=== PATIENT | female | born 1955 | race Two or more races ===

== ENCOUNTER 2024-10-22 13:08 | Inpatient (IN) | payer OTHER ==
[~2024-10-22] VITALS: Ht 147.3 cm; Wt 52.6 kg
--- NOTE | 2024-10-22 13:31 | NUR ---
PTE ALERTA Y ORIENTADO X3 RECIBIDO POR AMBULANCIA ACOMPANADA DE DE LA TORRE ESPOSO, REFIERE TENER DEBILIDAD, SE HEATHER SV Y SE UBICA EN CAMA K7 CON BARRANDAS ELEVADAS.
[2024-10-22] MEDS ORDERED: FAMOtidine 10 MG/ML (4ML VIAL) IV ONE (13:45)
[2024-10-22] MEDS ORDERED: PIPERACILLIN/TAZOBACTAM SODIUM 3.375 GM VIAL IV ONE (13:45)
--- NOTE | 2024-10-22 14:16 | NUR ---
SE EDUCA PACIENTE SOBRE EL [place] MEDICO Y ESTA REFIERE ENTENDER. SE HEATHER MUESTRAS DE LABORATORIOS Y SE ENVIAN. SE ADMINITRA MEDICAMENTOS SEEGUN ORDEN MEDICA.
[2024-10-22 15:14] LABS: INR 1.15; PARTIAL THROMBOPLASTIN TIME 29.9 SECONDS (22.0-34.0); PROTHROMBIN TIME 12.4 SECONDS (9.0-11.5)
[2024-10-22 15:18] LABS: ALBUMIN 2.7 gm/dL (3.4-5.0); BILIRUBIN TOTAL 0.43 mg/dL (0.3-1.2); CALCIUM 9.3 mg/dL (8.5-10.1); CREATININE SERUM 0.44 mg/dL (0.55-1.02); GFR 142.63; GLOBULINA 4.3 G/DL (2.4-3.5); POTASSIUM 3.54 mEq/L (3.5-5.1)
[2024-10-22 15:24] LABS: HEMOGLOBIN 9.8 g/dL (12.0-15.00); MEAN CELL VOLUME 91.3 fL (80.00-100.00); MEAN CORPUSCULAR HEMOGLOBIN 29.9 pg (27.00-32.0); MEAN CORPUSCULAR HGB CONC 32.7 g/dl (32.0-36.0); PLATELET COUNT 233 K/uL (150-450); RED BLOOD COUNT 3.28 M/uL (4.00-6.00); RED CELL DISTRIBUTION WIDTH 15.4 % (11.5-14.5)
[2024-10-22 15:25] LABS: ERYTHROCYTE SEDIMENTATION RATE > 130 mm/hr
[2024-10-22 15:27] LABS: C-REACTIVE PROTEIN 25.1 MG/DL (0.00-0.29)
[2024-10-22] MEDS ORDERED: VANCOMYCIN HCL 1,000 MG VIAL IV SCH (17:23)
[2024-10-22] MEDS ORDERED: ACETAMINOPHEN 500 MG GEL..CAP PO PRN (17:30)
[2024-10-22] MEDS ORDERED: 0.9 % SODIUM CHLORIDE 1,000 ML IV SCH (17:30)
[2024-10-22] MEDS ORDERED: ONDANSETRON HCL 4 MG in 0.9 % SODIUM CHLORIDE 50 ML IV PRN (17:30)
[2024-10-22] MEDS ORDERED: 0.9 % SODIUM CHLORIDE 500 ML IV ONE (17:45)
[2024-10-23] MEDS ORDERED: CEFEPIME HCL 2,000 MG in DEXTROSE 5 % IN WATER 100 ML IV SCH (01:00)
[2024-10-23] MEDS ORDERED: ENOXAPARIN SODIUM 40 MG/0.4 ML SYRINGE SUBCUTANEO SCH (09:00)
[2024-10-23] MEDS ORDERED: FAMOTIDINE/PF 20 MG in 0.9 % SODIUM CHLORIDE 8 ML IV PUSH SCH (09:00)
[2024-10-23 16:15] VITALS: BP 147/73; O2SAT 99
[2024-10-23 17:14] LABS: URINE APPEARANCE Turbid; URINE BILIRRUBIN Negative (NEGATIVE); URINE BLOOD Moderate; URINE CAST 6.13 uL (0.0-1.40); URINE COLOR Yellow; URINE EPITHELIAL CELLS 91.3 uL (0.0-38.8); URINE GLUCOSE Negative (NEGATIVE); URINE LEUKOCYTE Large; URINE NITRATE Negative; URINE RBC 73.5 uL (0.0-20.8); URINE UROBILINOGEN 0.2 E.U./dl
[2024-10-23 18:41] VITALS: BP 130/70; O2SAT 98
[2024-10-23 19:05] LABS: URINE BACTERIA > 9821.5 uL (0.0-1933); URINE KETONE 40 (NEGATIVE); URINE PROTEIN 100 (NEGATIVE); URINE WBC > 5548.3 uL (0.0-23.2)
[2024-10-23 19:08] LABS: URINE YEAST NEGATIVE /hpf
[2024-10-24] MEDS ORDERED: PIPERACILLIN/TAZOBACTAM SODIUM 3.375 GM VIAL IV SCH
[2024-10-24 00:29] VITALS: BP 142/76; O2SAT 98
[2024-10-24] MEDS ORDERED: VANCOMYCIN HCL 1,000 MG VIAL ONE (06:30)
[2024-10-24 08:00] VITALS: BP 99/60; O2SAT 99
[2024-10-24] MEDS ORDERED: SODIUM HYPOCHLORITE 1OZ TOP SCH (09:00)
[2024-10-24 16:34] VITALS: BP 133/69; O2SAT 97
[2024-10-24] MEDS ORDERED: MAGNESIUM HYDROXIDE 400 MG/5 ML ML PO SCH (20:29)
[2024-10-25 00:31] VITALS: BP 76/45; O2SAT 97
[2024-10-25] MEDS ORDERED: VANCOMYCIN HCL 1,000 MG VIAL ONE (07:49)
[2024-10-25 08:31] VITALS: BP 90/55; O2SAT 97
[2024-10-25] MEDS ORDERED: MAGNESIUM HYDROXIDE 30 ML BLIST.PACK PO SCH (09:00)
[2024-10-25 17:02] VITALS: BP 107/74; O2SAT 95
[2024-10-26] VITALS: BP 108/77; O2SAT 99
[2024-10-26] MEDS ORDERED: VANCOMYCIN HCL 1,000 MG VIAL ONE (07:15)
[2024-10-26 08:00] VITALS: BP 93/71; O2SAT 97
[2024-10-26 17:38] VITALS: BP 90/66; O2SAT 98
[2024-10-26 21:50] LABS: HEMATOCRIT 25.9 % (36.0-45.00); MEAN CELL VOLUME 90.6 fL (80.00-100.00); MEAN CORPUSCULAR HGB CONC 32.7 g/dl (32.0-36.0); PLATELET COUNT 297 K/uL (150-450); RED BLOOD COUNT 2.86 M/uL (4.00-6.00); RED CELL DISTRIBUTION WIDTH 15.8 % (11.5-14.5)
[2024-10-26 21:51] LABS: HEMOGLOBIN 8.5 g/dL (12.0-15.00); MEAN CORPUSCULAR HEMOGLOBIN 29.7 pg (27.00-32.0)
[2024-10-26 22:13] LABS: ALBUMIN 1.7 gm/dL (3.4-5.0); BILIRUBIN TOTAL 0.25 mg/dL (0.3-1.2); CALCIUM 8.2 mg/dL (8.5-10.1); CREATININE SERUM 0.36 mg/dL (0.55-1.02); GFR 179.79; GLOBULINA 3.7 G/DL (2.4-3.5); MAGNESIUM 1.7 mg/dL (1.8-2.4); PHOSPHOROUS 2.1 mg/dL (2.5-4.9); POTASSIUM 3.98 mEq/L (3.5-5.1); TOTAL PROTEIN 5.4 gm/dL (6.4-8.2)
[2024-10-27 01:25] VITALS: BP 92/69; O2SAT 98
[2024-10-27 08:00] VITALS: BP 118/79; O2SAT 98
[2024-10-27 16:00] VITALS: BP 120/82; O2SAT 96
[2024-10-28 01:40] VITALS: BP 145/82; O2SAT 97
[2024-10-28 08:00] VITALS: BP 150/74; O2SAT 95
[2024-10-28 17:58] VITALS: BP 133/79; O2SAT 94
[2024-10-29] VITALS: BP 167/98; O2SAT 92
[2024-10-29 07:10] LABS: HEMATOCRIT 26.5 % (36.0-45.00); MEAN CELL VOLUME 90.6 fL (80.00-100.00); MEAN CORPUSCULAR HGB CONC 32.8 g/dl (32.0-36.0); PLATELET COUNT 337 K/uL (150-450); RED BLOOD COUNT 2.93 M/uL (4.00-6.00); RED CELL DISTRIBUTION WIDTH 16.1 % (11.5-14.5)
[2024-10-29 07:17] LABS: HEMOGLOBIN 8.7 g/dL (12.0-15.00); MEAN CORPUSCULAR HEMOGLOBIN 29.6 pg (27.00-32.0)
[2024-10-29 08:40] VITALS: BP 146/85; O2SAT 95
[2024-10-29] MEDS ORDERED: FAMOTIDINE/PF 20 MG in 0.9 % SODIUM CHLORIDE 8 ML IV PUSH SCH (09:00)
[2024-10-29 13:11] VITALS: BP 146/84; O2SAT 95
[2024-10-29 16:00] VITALS: BP 151/79; O2SAT 95
[2024-10-30 01:24] VITALS: BP 132/83; O2SAT 97
[2024-10-30 09:17] VITALS: BP 152/85; O2SAT 96
[2024-10-30 16:00] VITALS: BP 153/87; O2SAT 96
[2024-10-31 00:48] VITALS: BP 113/76; O2SAT 98
[2024-10-31 09:29] VITALS: BP 112/73; O2SAT 97
[2024-10-31 16:00] VITALS: BP 135/82; O2SAT 98
[2024-11-01 00:44] VITALS: BP 103/67; O2SAT 97
[2024-11-01 08:24] VITALS: BP 129/74; O2SAT 98
[2024-11-01 17:10] VITALS: BP 144/78
[2024-11-02 00:38] VITALS: BP 102/63; O2SAT 98
[2024-11-02 08:00] VITALS: BP 115/66; O2SAT 98
[2024-11-02] MEDS ORDERED: PIPERACILLIN/TAZOBACTAM SODIUM 3.375 GM VIAL IV SCH (12:00)
[2024-11-02 16:00] VITALS: BP 125/76; O2SAT 99
[2024-11-03 01:20] VITALS: BP 141/77; O2SAT 100
[2024-11-03 08:00] VITALS: BP 150/82; O2SAT 100
[2024-11-03 16:53] VITALS: BP 114/61; O2SAT 98
[2024-11-04 01:11] VITALS: BP 90/51; O2SAT 96
[2024-11-04 09:20] VITALS: BP 149/76; O2SAT 100
[2024-11-04 16:27] VITALS: BP 144/77; O2SAT 96
[2024-11-04] MEDS ORDERED: POVIDONE-IODINE 118 ML BOTT TOP ONE (16:39)
== END 2024-11-04 19:09 | DRG 622 ==
LOC: ER 13:08 → SEC-K 19:43 → SURH 19:43
PROVIDERS: General Practice; ADMIT Internal Medicine; ATTEND Internal Medicine
PROC: 8E0ZXY6 Isolation (ICD-10-PCS; 2024-10-22)
PROC: 0JB70ZZ Excision of Back Subcutaneous Tissue and Fascia, Open Approach (ICD-10-PCS; principal; 2024-10-23)
PROC: BR39ZZZ Magnetic Resonance Imaging (MRI) of Lumbar Spine (ICD-10-PCS; 2024-10-26)
PROC: 0JB70ZZ Excision of Back Subcutaneous Tissue and Fascia, Open Approach (ICD-10-PCS; 2024-10-29)
PROC: 02HV33Z Insertion of Infusion Device into Superior Vena Cava, Percutaneous Approach (ICD-10-PCS; 2024-11-04)
DX: E11.622 Type 2 diabetes mellitus with other skin ulcer (principal); L89.153 Pressure ulcer of sacral region, stage 3; I96 Gangrene, not elsewhere classified; C79.82 Secondary malignant neoplasm of genital organs; M86.8X8 Other osteomyelitis, other site; L02.212 Cutaneous abscess of back [any part, except buttock and flank]; L03.312 Cellulitis of back [any part except buttock and flank]; D84.89 Other immunodeficiencies; K59.00 Constipation, unspecified; I10 Essential (primary) hypertension; Z92.21 Personal history of antineoplastic chemotherapy; B96.4 Proteus (mirabilis) (morganii) as the cause of diseases classified elsewhere; Z74.01 Bed confinement status
CPT/HCPCS: 72148

== ENCOUNTER 2024-12-09 02:05 | Inpatient (IN) | payer OTHER ==
[~2024-12-09] VITALS: Ht 152.4 cm; Wt 52.2 kg
--- NOTE | 2024-12-09 02:32 | NUR ---
PTE LLEGA A HOLLAND DE EMEREGENCIA EN AMBULANCIA POR TOS Y LEVE DIFICULTADA AL RESPIRAL . SE LE SIMRAN S/V Y SE DOCUEMTA .PTE LLEGA CON IVF'S EN MANO IZQUIOERDA , PTE CON P[ICC LINE Y FOLIE CATHETE, SE OBSERVA CON DRENAJE PARA LA ULCERA SACRAL . PTE REFIERE ESTAR EN CAMADA., SE ACOMODA EN CONCHITA CON BARBDAS ELEVADA.3
[2024-12-09] MEDS ORDERED: GUAIFENESIN 200 MG/10 ML BLIST.PACK PO STA (02:43)
[2024-12-09] MEDS ORDERED: ALBUTEROL SULFATE 3 ML/2.5 MG AMPUL.NEB IH SCH ×3 (02:45→12:00)
[2024-12-09 03:10] LABS: ABG PH 7.460 (7.35-7.45); ABG PO2 108.0 mmHg (80-100); BICARBONATE 29.0 mmol/l (23-25)
[2024-12-09] MEDS ORDERED: GUAIFENESIN 200 MG/10 ML BLIST.PACK PO ONE (03:31)
--- NOTE | 2024-12-09 03:57 | NUR ---
SE RECIBE PTE FEMENINA DE 69 YRS ALERTA CONCIENTE Y TRANQUILA EN CONCHITA CON BARADAS ELEVADA. ES EVALUADA POR EL DR, BIJAN QUIEN ORDENA TRATAMIENTO LA CUAL SE EJECUTA.
[2024-12-09 04:05] LABS: BASO % 0.1 % (0.1-1.2); EOS # 0.02 (0.04-0.54); EOS % 0.2 % (0.7-7.0); LYMPH # 0.48 (1.18-3.74); LYMPH % 5.5 % (19.3-53.1); MEAN PLATELET VOLUME 8.70 fl (9.4-12.4); MONO # 0.59 (0.24-0.82); MONO % 6.7 % (4.7-12.5); NEUT # 7.59 (1.56-6.13); NEUT % 86.6 % (34.0-71.1); RED CELL DISTRIBUTION WIDTH 17.3 % (11.6-14.4)
[2024-12-09 04:18] LABS: ALT/SGPT 43.0 U/L (12-78); AST/SGOT 22.0 U/L (15-37); BILIRUBIN TOTAL 0.23 mg/dL (0.3-1.2); BUN CREA RATIO 33.0 (7.0-25.0); CREATININE SERUM 0.57 mg/dL (0.55-1.02); GFR 105.79; GLOBULINA 3.4 G/DL (2.4-3.5); GLUCOSE FASTING 149.0 mg/dL (65-100); OSMOLALITY SERUM 286.0 MOSM/KG (275-295)
[2024-12-09 04:44] LABS: URINE APPEARANCE Turbid; URINE BILIRRUBIN Small (NEGATIVE); URINE BLOOD NHT; URINE COLOR Dark Yellow; URINE GLUCOSE Negative (NEGATIVE); URINE KETONE Trace (NEGATIVE); URINE LEUKOCYTE Moderate; URINE NITRATE Negative; URINE UROBILINOGEN 1.0 E.U./dl
[2024-12-09 04:47] LABS: URINE BACTERIA 1958.3 uL (0.0-1933); URINE RBC 756.0 uL (0.0-20.8)
[2024-12-09 05:09] LABS: COVID-19 AG NEGATIVE (NEGATIVE)
[2024-12-09 05:11] LABS: URINE CAST > 21.83 uL (0.0-1.40); URINE EPITHELIAL CELLS > 201.7 uL (0.0-38.8); URINE MUCUS SCANT; URINE PROTEIN 100 (NEGATIVE); URINE WBC > 5548.3 uL (0.0-23.2)
[2024-12-09 05:12] LABS: TYPE CELLS SQUAMOUS
[2024-12-09] MEDS ORDERED: OSELTAMIVIR PHOSPHATE 75 MG CAPSULE PO STA (05:12)
[2024-12-09 05:13] LABS: URINE YEAST MANY /hpf
[2024-12-09] MEDS ORDERED: CEFTRIAXONE SODIUM 1,000 MG VIAL IV STA (06:16)
[2024-12-09 06:38] LABS: o2 32 %
[2024-12-09] MEDS ORDERED: CEFTRIAXONE SODIUM 1,000 MG VIAL ONE (07:18)
[2024-12-09] MEDS ORDERED: OSELTAMIVIR PHOSPHATE 75 MG CAPSULE PO ONE (07:18)
--- NOTE | 2024-12-09 07:56 | NUR ---
SE ORIENTA A PACIENTE SOBRE [place] MEDICO Y EL MISMO REFIERE ENTENDER Y ACEPTAR RIVKA. SE PROCEDE A ADMINISTRAR MEDICAMENTO HANNY ORDEN MEDICA BAJO MEDIDAS ASEPTICAS.
[2024-12-09] MEDS ORDERED: ALBUTEROL SULFATE 3 ML/2.5 MG AMPUL.NEB IH ONE ×2 (08:12→11:49)
[2024-12-09] MEDS ORDERED: SODIUM CHLORIDE 0.45 % 1,000 ML IV SCH (11:30)
[2024-12-09] MEDS ORDERED: OSELTAMIVIR PHOSPHATE 75 MG CAPSULE PO SCH (11:49)
[2024-12-09] MEDS ORDERED: VANCOMYCIN HCL 1,000 MG VIAL IV STA (11:51)
[2024-12-09] MEDS ORDERED: CEFEPIME HCL 1,000 MG in 0.9 % SODIUM CHLORIDE 50 ML IV SCH (12:36)
[2024-12-09] MEDS ORDERED: VANCOMYCIN HCL 1,000 MG VIAL ONE (13:45)
[2024-12-09 15:26] VITALS: BP 102/62; O2SAT 98
[2024-12-09 17:54] VITALS: BP 93/58; O2SAT 83
[2024-12-09 18:31] LABS: ABG PH 7.466 (7.35-7.45); BICARBONATE 28.4 mmol/l (23-25)
[2024-12-09] MEDS ORDERED: AMINO ACIDS 1 EACH TABLET PO SCH (19:32)
[2024-12-09 19:46] LABS: ABG PO2 51.9 mmHg (80-100)
[2024-12-09 19:47] LABS: o2 32 %
[2024-12-09] MEDS ORDERED: FAMOTIDINE/PF 20 MG/2 ML VIAL IV SCH (21:00)
[2024-12-09] MEDS ORDERED: ENOXAPARIN SODIUM 40 MG/0.4 ML SYRINGE SUBCUTANEO STA (21:34)
[2024-12-09] MEDS ORDERED: ENOXAPARIN SODIUM 40 MG/0.4 ML SYRINGE SUBCUTANEO SCH (21:34)
[2024-12-09] MEDS ORDERED: NOREPINEPHRINE BITARTRATE 1 MG/ML AMPUL IV ONE (23:01)
[2024-12-09] MEDS ORDERED: NOREPINEPHRINE BITARTRATE 8 MG in DEXTROSE 5 % IN WATER 250 ML IV SCH (23:15)
[2024-12-09] MEDS ORDERED: 0.9 % SODIUM CHLORIDE 500 ML IV ONE (23:15)
[2024-12-09 23:49] VITALS: O2SAT 100
[2024-12-10] VITALS (7 sets, daily range): BP systolic 143–159; BP diastolic 74–79; O2SAT 96–100
[2024-12-10 11:36] LABS: ABG PH 7.395 (7.35-7.45); ABG PO2 101.1 mmHg (80-100); BICARBONATE 27.2 mmol/l (23-25)
[2024-12-10 11:37] LABS: o2 50 %
[2024-12-10] MEDS ORDERED: FLUCONAZOLE 100 MG TABLET PO NR (17:00)
[2024-12-10] MEDS ORDERED: LINEZOLID IN DEXTROSE 5% 300 ML IV SCH (17:25)
[2024-12-10 20:02] LABS: URINE APPEARANCE Turbid; URINE BILIRRUBIN Negative (NEGATIVE); URINE BLOOD NHT; URINE COLOR Yellow; URINE GLUCOSE Negative (NEGATIVE); URINE KETONE 15 (NEGATIVE); URINE LEUKOCYTE Large; URINE NITRATE Negative; URINE PROTEIN 30 (NEGATIVE); URINE UROBILINOGEN 0.2 E.U./dl
[2024-12-10 20:05] LABS: URINE BACTERIA 79.5 uL (0.0-1933); URINE CAST 2.79 uL (0.0-1.40); URINE EPITHELIAL CELLS 42.1 uL (0.0-38.8); URINE RBC 399.6 uL (0.0-20.8); URINE WBC 620.8 uL (0.0-23.2)
[2024-12-10 20:45] LABS: URINE YEAST MANY /hpf
[2024-12-10 20:55] LABS: TYPE CELLS SQUAMOUS
[2024-12-11] VITALS (9 sets, daily range): BP systolic 112–137; BP diastolic 67–73; O2SAT 95–100
[2024-12-11 03:11] LABS: BASO % 0.1 % (0.1-1.2); EOS # 0.16 (0.04-0.54); EOS % 1.3 % (0.7-7.0); LYMPH # 0.52 (1.18-3.74); LYMPH % 4.3 % (19.3-53.1); MEAN PLATELET VOLUME 8.30 fl (9.4-12.4); MONO # 0.96 (0.24-0.82); MONO % 7.9 % (4.7-12.5); NEUT # 10.44 (1.56-6.13); NEUT % 85.7 % (34.0-71.1); RED CELL DISTRIBUTION WIDTH 18.7 % (11.6-14.4)
[2024-12-11 03:41] LABS: INR 1.02
[2024-12-11 03:54] LABS: ALT/SGPT 32.0 U/L (12-78); AST/SGOT 22.0 U/L (15-37); BILIRUBIN TOTAL 0.6 mg/dL (0.3-1.2); GLOBULINA 2.9 G/DL (2.4-3.5); GLUCOSE FASTING 99.0 mg/dL (65-100); OSMOLALITY SERUM 283.0 MOSM/KG (275-295); T4 FREE 1.44 NG/ML (0.76-1.46); TSH 2.45 uIU/mL (0.358-3.74)
[2024-12-11 04:10] LABS: BUN CREA RATIO 75.0 (7.0-25.0); ERYTHROCYTE SEDIMENTATION RATE 34 mm/hr (0-30); GFR 458.33
[2024-12-11 04:11] LABS: CREATININE SERUM 0.16 mg/dL (0.55-1.02)
[2024-12-11] MEDS ORDERED: MAGNESIUM SULFATE IN WATER 4 GM/100 ML PIGGYBACK IV NR (07:15)
[2024-12-11] MEDS ORDERED: POTASSIUM CHLORIDE IN WATER 100 ML IV NR (10:30)
[2024-12-11] MEDS ORDERED: FLUCONAZOLE 100 MG TABLET PO SCH (17:00)
[2024-12-12] VITALS (9 sets, daily range): BP systolic 100–172; BP diastolic 61–90; O2SAT 95–100
[2024-12-12 09:32] LABS: ob NEGATIVE (NEGATIVE)
[2024-12-12] MEDS ORDERED: MEROPENEM 500 MG/VIAL VIAL IV SCH (12:00)
[2024-12-13] VITALS (9 sets, daily range): BP systolic 126–137; BP diastolic 73–74; O2SAT 98–100
[2024-12-13 06:14] LABS: BASO % 0.2 % (0.1-1.2); EOS # 0.33 (0.04-0.54); EOS % 4.1 % (0.7-7.0); LYMPH # 0.53 (1.18-3.74); LYMPH % 6.6 % (19.3-53.1); MEAN PLATELET VOLUME 8.40 fl (9.4-12.4); MONO # 0.79 (0.24-0.82); MONO % 9.8 % (4.7-12.5); NEUT # 6.31 (1.56-6.13); NEUT % 78.2 % (34.0-71.1); RED CELL DISTRIBUTION WIDTH 18.5 % (11.6-14.4)
[2024-12-13 06:40] LABS: ALT/SGPT 27.0 U/L (12-78); AST/SGOT 25.0 U/L (15-37); BILIRUBIN TOTAL 0.35 mg/dL (0.3-1.2); BUN CREA RATIO 19.0 (7.0-25.0); GFR 261.73; GLOBULINA 2.8 G/DL (2.4-3.5); GLUCOSE FASTING 97.0 mg/dL (65-100); OSMOLALITY SERUM 284.0 MOSM/KG (275-295)
[2024-12-13 06:42] LABS: CREATININE SERUM 0.26 mg/dL (0.55-1.02)
[2024-12-13 13:32] LABS: URINE APPEARANCE Clear; URINE BILIRRUBIN Negative (NEGATIVE); URINE BLOOD Negative; URINE COLOR Yellow; URINE GLUCOSE Negative (NEGATIVE); URINE KETONE Negative (NEGATIVE); URINE LEUKOCYTE Large; URINE NITRATE Negative; URINE PROTEIN Trace (NEGATIVE); URINE UROBILINOGEN 0.2 E.U./dl
[2024-12-13 13:36] LABS: URINE BACTERIA 340.2 uL (0.0-1933); URINE EPITHELIAL CELLS 68.2 uL (0.0-38.8); URINE RBC 11.1 uL (0.0-20.8); URINE WBC 237.1 uL (0.0-23.2)
[2024-12-13 13:48] LABS: URINE CAST 1.03 uL (0.0-1.40)
[2024-12-13 13:49] LABS: URINE YEAST FEW /hpf
[2024-12-13] MEDS ORDERED: POTASSIUM CHLORIDE IN WATER 100 ML IV STA (14:35)
[2024-12-13] MEDS ORDERED: MAGNESIUM SULFATE 1,000 MG in 0.9 % SODIUM CHLORIDE 50 ML IV NR (14:35)
[2024-12-13] MEDS ORDERED: MAGNESIUM SULFATE/D5W 100 ML IV NR (14:40)
[2024-12-14] VITALS (9 sets, daily range): BP systolic 133–165; BP diastolic 76–94; O2SAT 99–100
[2024-12-14 05:31] LABS: GLUCOSE FASTING 91 mg/dL (65-100); OSMOLALITY SERUM 285 MOSM/KG (275-295)
[2024-12-14 05:45] LABS: BUN CREA RATIO 26 (7.0-25.0); CREATININE SERUM < 0.15 mg/dL (0.55-1.02); GFR 493.81
[2024-12-14] MEDS ORDERED: MAGNESIUM SULFATE/D5W 100 ML IV NR (18:00)
[2024-12-15] VITALS (8 sets, daily range): BP systolic 120–157; BP diastolic 67–80; O2SAT 96–100
[2024-12-15] MEDS ORDERED: ALBUTEROL SULFATE 3 ML/2.5 MG AMPUL.NEB IH SCH (16:00)
[2024-12-15 18:27] LABS: ABG PH 7.474 (7.35-7.45); ABG PO2 82.7 mmHg (80-100)
[2024-12-15 18:28] LABS: BICARBONATE 36.5 mmol/l (23-25); o2 21 %
[2024-12-16] VITALS (8 sets, daily range): BP systolic 91–165; BP diastolic 56–84; O2SAT 93–100
[2024-12-17] VITALS (10 sets, daily range): BP systolic 110–142; BP diastolic 58–79; O2SAT 98–100
[2024-12-18] VITALS (9 sets, daily range): BP systolic 108–123; BP diastolic 65–73; O2SAT 97–100
[2024-12-18 08:15] LABS: GLUCOSE FASTING 93 mg/dL (65-100); OSMOLALITY SERUM 287 MOSM/KG (275-295)
[2024-12-18 08:17] LABS: BASO % 0.4 % (0.1-1.2); EOS # 0.07 (0.04-0.54); EOS % 1.5 % (0.7-7.0); LYMPH # 0.97 (1.18-3.74); LYMPH % 20.9 % (19.3-53.1); MEAN PLATELET VOLUME 8.20 fl (9.4-12.4); MONO # 0.64 (0.24-0.82); NEUT # 2.86 (1.56-6.13); NEUT % 61.7 % (34.0-71.1); RED CELL DISTRIBUTION WIDTH 16.9 % (11.6-14.4)
[2024-12-18 08:21] LABS: MONO % 13.8 % (4.7-12.5)
[2024-12-18 08:37] LABS: BUN CREA RATIO 126 (7.0-25.0); CREATININE SERUM < 0.15 mg/dL (0.55-1.02); GFR 493.81
[2024-12-19] VITALS (9 sets, daily range): BP systolic 90–137; BP diastolic 55–74; O2SAT 95–100
[2024-12-20] VITALS (9 sets, daily range): BP systolic 100–138; BP diastolic 60–80; O2SAT 97–100
[2024-12-20 07:07] LABS: ALT/SGPT 27.0 U/L (12-78); AST/SGOT 35.0 U/L (15-37); BILIRUBIN TOTAL 0.61 mg/dL (0.3-1.2); BUN CREA RATIO 75.0 (7.0-25.0); GFR 287.06; GLOBULINA 3.3 G/DL (2.4-3.5); GLUCOSE FASTING 79.0 mg/dL (65-100); OSMOLALITY SERUM 280.0 MOSM/KG (275-295)
[2024-12-20 07:08] LABS: CREATININE SERUM 0.24 mg/dL (0.55-1.02)
[2024-12-21] VITALS (11 sets, daily range): BP systolic 122–134; BP diastolic 74–80; O2SAT 90–100
[2024-12-21 13:01] LABS: BASO % 0.5 % (0.1-1.2); EOS # 0.08 (0.04-0.54); EOS % 1.3 % (0.7-7.0); LYMPH # 0.75 (1.18-3.74); LYMPH % 12.0 % (19.3-53.1); MEAN PLATELET VOLUME 8.50 fl (9.4-12.4); MONO # 0.50 (0.24-0.82); MONO % 8.0 % (4.7-12.5); NEUT # 4.81 (1.56-6.13); NEUT % 77.1 % (34.0-71.1); RED CELL DISTRIBUTION WIDTH 16.6 % (11.6-14.4)
[2024-12-22] VITALS (8 sets, daily range): BP systolic 95–114; BP diastolic 55–74; O2SAT 96–999
[2024-12-23] VITALS (9 sets, daily range): BP systolic 101–160; BP diastolic 64–85; O2SAT 99–100
[2024-12-24] VITALS (10 sets, daily range): BP systolic 70–138; BP diastolic 40–78; O2SAT 96–100
[2024-12-24 05:38] LABS: BASO % 0.3 % (0.1-1.2); EOS # 0.07 (0.04-0.54); EOS % 0.9 % (0.7-7.0); LYMPH # 0.86 (1.18-3.74); LYMPH % 11.2 % (19.3-53.1); MEAN PLATELET VOLUME 8.70 fl (9.4-12.4); MONO # 0.81 (0.24-0.82); MONO % 10.5 % (4.7-12.5); NEUT # 5.86 (1.56-6.13); NEUT % 76.2 % (34.0-71.1); RED CELL DISTRIBUTION WIDTH 16.2 % (11.6-14.4)
[2024-12-24 06:27] LABS: ALT/SGPT 17.0 U/L (12-78); AST/SGOT 20.0 U/L (15-37); BILIRUBIN TOTAL 0.32 mg/dL (0.3-1.2); BUN CREA RATIO 125.0 (7.0-25.0); GFR 458.33; GLOBULINA 3.1 G/DL (2.4-3.5); GLUCOSE FASTING 87.0 mg/dL (65-100); OSMOLALITY SERUM 285.0 MOSM/KG (275-295)
[2024-12-24 06:49] LABS: CREATININE SERUM 0.16 mg/dL (0.55-1.02)
[2024-12-25 03:28] VITALS: BP 85/49; O2SAT 98
[2024-12-25 03:30] VITALS: O2SAT 100
[2024-12-25 09:53] VITALS: O2SAT 100
[2024-12-25 10:18] VITALS: BP 90/50; O2SAT 96
[2024-12-25 14:11] VITALS: O2SAT 100
[2024-12-25 18:58] VITALS: BP 100/70
[2024-12-26] VITALS (7 sets, daily range): BP systolic 73–146; BP diastolic 40–78; O2SAT 98–100
[2024-12-27] VITALS: O2SAT 99
[2024-12-27 02:29] VITALS: BP 96/55; O2SAT 97
[2024-12-27 08:36] VITALS: BP 95/53; O2SAT 97
[2024-12-27 11:43] LABS: BASO % 0.2 % (0.1-1.2); EOS # 0.04 (0.04-0.54); EOS % 0.5 % (0.7-7.0); LYMPH # 0.65 (1.18-3.74); LYMPH % 7.3 % (19.3-53.1); MEAN PLATELET VOLUME 8.30 fl (9.4-12.4); MONO # 0.72 (0.24-0.82); MONO % 8.1 % (4.7-12.5); NEUT # 7.41 (1.56-6.13); NEUT % 83.4 % (34.0-71.1); RED CELL DISTRIBUTION WIDTH 16.5 % (11.6-14.4)
[2024-12-27 12:55] LABS: ALT/SGPT 17.0 U/L (12-78); AST/SGOT 15.0 U/L (15-37); BILIRUBIN TOTAL 0.39 mg/dL (0.3-1.2); BUN CREA RATIO 77.0 (7.0-25.0); CREATININE SERUM 0.26 mg/dL (0.55-1.02); GFR 261.73; GLOBULINA 3.4 G/DL (2.4-3.5); GLUCOSE FASTING 88.0 mg/dL (65-100); OSMOLALITY SERUM 283.0 MOSM/KG (275-295)
[2024-12-27 13:26] VITALS: O2SAT 90
[2024-12-27 16:57] VITALS: O2SAT 100
[2024-12-27 17:59] VITALS: BP 166/85
== END 2024-12-27 20:49 | disposition home or self-care (01) | DRG 166 ==
LOC: ER 02:05 → MEDJ 13:10
PROVIDERS: General Practice; Internal Medicine; Internal Medicine Critical Care Medicine; Internal Medicine Infectious Disease; ADMIT Specialist; ATTEND Specialist
PROC: 8E0ZXY6 Isolation (ICD-10-PCS; 2024-12-09)
PROC: BB24ZZZ Computerized Tomography (CT Scan) of Bilateral Lungs (ICD-10-PCS; 2024-12-09)
PROC: 3E0F7GC Introduction of Other Therapeutic Substance into Respiratory Tract, Via Natural or Artificial Opening (ICD-10-PCS; 2024-12-09)
PROC: 4A12X4Z Monitoring of Cardiac Electrical Activity, External Approach (ICD-10-PCS; 2024-12-09)
PROC: 30243N1 Transfusion of Nonautologous Red Blood Cells into Central Vein, Percutaneous Approach (ICD-10-PCS; 2024-12-09)
PROC: 5A0945A Assistance with Respiratory Ventilation, 24-96 Consecutive Hours, High Flow/Velocity Cannula (ICD-10-PCS; 2024-12-09)
PROC: 0JB70ZZ Excision of Back Subcutaneous Tissue and Fascia, Open Approach (ICD-10-PCS; principal; 2024-12-10)
PROC: B246ZZZ Ultrasonography of Right and Left Heart (ICD-10-PCS; 2024-12-11)
PROC: 0JB70ZZ Excision of Back Subcutaneous Tissue and Fascia, Open Approach (ICD-10-PCS; 2024-12-20)
PROC: BW21YZZ Computerized Tomography (CT Scan) of Abdomen and Pelvis using Other Contrast (ICD-10-PCS; 2024-12-21)
DX: J10.00 Influenza due to other identified influenza virus with unspecified type of pneumonia (principal); J96.01 Acute respiratory failure with hypoxia; L89.154 Pressure ulcer of sacral region, stage 4; I96 Gangrene, not elsewhere classified; J98.11 Atelectasis; C56.9 Malignant neoplasm of unspecified ovary; C79.82 Secondary malignant neoplasm of genital organs; C78.6 Secondary malignant neoplasm of retroperitoneum and peritoneum; D84.89 Other immunodeficiencies; B48.8 Other specified mycoses; R39.2 Extrarenal uremia; E11.622 Type 2 diabetes mellitus with other skin ulcer; D63.0 Anemia in neoplastic disease; E88.09 Other disorders of plasma-protein metabolism, not elsewhere classified; I10 Essential (primary) hypertension; Z74.01 Bed confinement status; Z92.21 Personal history of antineoplastic chemotherapy; B96.20 Unspecified Escherichia coli [E. coli] as the cause of diseases classified elsewhere; B95.2 Enterococcus as the cause of diseases classified elsewhere; B96.5 Pseudomonas (aeruginosa) (mallei) (pseudomallei) as the cause of diseases classified elsewhere; B96.6 Bacteroides fragilis [B. fragilis] as the cause of diseases classified elsewhere

== ENCOUNTER 2024-12-29 23:46 | Inpatient (IN) | payer OTHER ==
[~2024-12-29] VITALS: Ht 162.6 cm; Wt 68.0 kg
[2024-12-30] VITALS (8 sets, daily range): BP systolic 97–167; BP diastolic 55–77; O2SAT 100
[2024-12-30] MEDS ORDERED: CEFTRIAXONE SODIUM 1,000 MG VIAL IV STA (01:23)
[2024-12-30] MEDS ORDERED: 0.9 % SODIUM CHLORIDE 1,000 ML IV ONE (01:30)
[2024-12-30] MEDS ORDERED: NOREPINEPHRINE BITARTRATE 8 MG in DEXTROSE 5 % IN WATER 250 ML IV SCH (02:30)
[2024-12-30 02:31] LABS: BASO % 0.2 % (0.1-1.2); EOS # 0.06 (0.04-0.54); EOS % 0.5 % (0.7-7.0); LYMPH # 1.02 (1.18-3.74); LYMPH % 8.3 % (19.3-53.1); MEAN PLATELET VOLUME 8.70 fl (9.4-12.4); MONO # 1.36 (0.24-0.82); MONO % 11.1 % (4.7-12.5); NEUT # 9.71 (1.56-6.13); NEUT % 79.0 % (34.0-71.1); RED CELL DISTRIBUTION WIDTH 16.4 % (11.6-14.4)
[2024-12-30 02:41] LABS: INR 1.16
[2024-12-30 02:47] LABS: ALT/SGPT 9.0 U/L (12-78); AST/SGOT 9.0 U/L (15-37); BILIRUBIN TOTAL 0.25 mg/dL (0.3-1.2); BUN CREA RATIO 89.0 (7.0-25.0); GFR 250.57; GLOBULINA 3.4 G/DL (2.4-3.5); GLUCOSE FASTING 128.0 mg/dL (65-100); OSMOLALITY SERUM 285.0 MOSM/KG (275-295)
[2024-12-30 02:51] LABS: CREATININE SERUM 0.27 mg/dL (0.55-1.02)
[2024-12-30 05:37] LABS: URINE APPEARANCE Cloudy; URINE BILIRRUBIN Negative (NEGATIVE); URINE BLOOD Trace; URINE COLOR Dark Yellow; URINE GLUCOSE Negative (NEGATIVE); URINE KETONE Trace (NEGATIVE); URINE LEUKOCYTE Moderate; URINE NITRATE Positive; URINE UROBILINOGEN 1.0 E.U./dl
[2024-12-30 05:41] LABS: URINE BACTERIA 5008.5 uL (0.0-1933); URINE EPITHELIAL CELLS 7.0 uL (0.0-38.8); URINE RBC 73.3 uL (0.0-20.8); URINE WBC 210.1 uL (0.0-23.2)
[2024-12-30 06:12] LABS: URINE CAST 0.29 uL (0.0-1.40); URINE PROTEIN 100 (NEGATIVE)
[2024-12-30 06:13] LABS: URINE YEAST MANY /hpf
[2024-12-30] MEDS ORDERED: POTASSIUM CHLORIDE IN WATER 100 ML IV STA (07:59)
[2024-12-30] MEDS ORDERED: MAGNESIUM SULFATE 1,000 MG in 0.9 % SODIUM CHLORIDE 50 ML IV ONE ×2 (08:00→23:45)
[2024-12-30] MEDS ORDERED: MEROPENEM 1,000 MG in 0.9 % SODIUM CHLORIDE 100 ML IV SCH (13:03)
[2024-12-30] MEDS ORDERED: VANCOMYCIN HCL 1,000 MG VIAL IV SCH (19:22)
[2024-12-30] MEDS ORDERED: ACETAMINOPHEN 500 MG GEL..CAP PO PRN (19:30)
[2024-12-30] MEDS ORDERED: 0.9 % SODIUM CHLORIDE 1,000 ML IV SCH (19:30)
[2024-12-30] MEDS ORDERED: POTASSIUM CHLORIDE 20MEQ/100ML H2O PB IV ONE (23:45)
[2024-12-31] VITALS (20 sets, daily range): BP systolic 74–574; BP diastolic 44–110; O2SAT 99–100
[2024-12-31] MEDS ORDERED: VANCOMYCIN HCL 5 MG/ML REDILUIDO IV SCH (09:00)
[2024-12-31] MEDS ORDERED: LACTOBACILLUS ACIDOPHILUS 1 CAP CAP PO SCH (09:00)
[2024-12-31] MEDS ORDERED: IRON FUM,PS/FOLIC/BCOMP,C NO.9 1 CAP CAPSULE PO SCH (09:00)
[2024-12-31] MEDS ORDERED: FAMOTIDINE/PF 20 MG in 0.9 % SODIUM CHLORIDE 8 ML IV PUSH SCH (09:00)
[2024-12-31] MEDS ORDERED: AMINO ACIDS/PROTEIN HYDROLYS 30 ML BLIST.PACK PO SCH (09:00)
[2024-12-31] MEDS ORDERED: FLUCONAZOLE 10 MG/ML PO SCH (13:11)
[2024-12-31] MEDS ORDERED: FLUCONAZOLE 10 MG/ML PO STA (13:11)
[2024-12-31] MEDS ORDERED: FLUCONAZOLE IN NACL,ISO-OSM 200 MG/100 ML PIGGYBAG IV STA (13:54)
[2024-12-31] MEDS ORDERED: HALOPERIDOL LACTATE 5 MG/ML AMPUL IM PRN (20:15)
[2025-01-01] VITALS (20 sets, daily range): BP systolic 99–163; BP diastolic 45–91; O2SAT 100
[2025-01-01] MEDS ORDERED: VANCOMYCIN HCL 5 MG/ML REDILUIDO IV SCH (01:00)
[2025-01-01] MEDS ORDERED: NOREPINEPHRINE BITARTRATE 8 MG in DEXTROSE 5 % IN WATER 250 ML IV SCH (06:30)
[2025-01-01 08:36] LABS: BASO % 0.2 % (0.1-1.2); EOS # 0.64 (0.04-0.54); EOS % 5.3 % (0.7-7.0); LYMPH # 0.59 (1.18-3.74); LYMPH % 4.9 % (19.3-53.1); MEAN PLATELET VOLUME 8.50 fl (9.4-12.4); MONO # 1.01 (0.24-0.82); MONO % 8.4 % (4.7-12.5); NEUT # 9.58 (1.56-6.13); NEUT % 79.8 % (34.0-71.1); RED CELL DISTRIBUTION WIDTH 16.3 % (11.6-14.4)
[2025-01-01 09:19] LABS: ALT/SGPT 13.0 U/L (12-78); AST/SGOT 11.0 U/L (15-37); BILIRUBIN TOTAL 0.33 mg/dL (0.3-1.2); BUN CREA RATIO 89.0 (7.0-25.0); GFR 400.1; GLOBULINA 3.2 G/DL (2.4-3.5); GLUCOSE FASTING 86.0 mg/dL (65-100); OSMOLALITY SERUM 289.0 MOSM/KG (275-295)
[2025-01-01 09:20] LABS: CREATININE SERUM 0.18 mg/dL (0.55-1.02)
[2025-01-01] MEDS ORDERED: POTASSIUM CHLORIDE IN WATER 100 ML IV ONE (10:00)
[2025-01-01] MEDS ORDERED: POTASSIUM PHOS,M-BASIC-D-BASIC 15 MM in 0.9 % SODIUM CHLORIDE 250 ML IV ONE (10:00)
[2025-01-01] MEDS ORDERED: POTASSIUM CHLORIDE IN WATER 100 ML IV NR (10:45)
[2025-01-01] MEDS ORDERED: POTASSIUM PHOS,M-BASIC-D-BASIC 15 MM in 0.9 % SODIUM CHLORIDE 250 ML IV NR (10:45)
[2025-01-01] MEDS ORDERED: FLUCONAZOLE IN NACL,ISO-OSM 200 MG/100 ML PIGGYBAG IV SCH (17:00)
[2025-01-02] VITALS (16 sets, daily range): BP systolic 117–157; BP diastolic 50–69; O2SAT 100
[2025-01-02 08:06] LABS: BASO % 0.4 % (0.1-1.2); EOS # 1.48 (0.04-0.54); EOS % 12.5 % (0.7-7.0); LYMPH # 1.00 (1.18-3.74); LYMPH % 8.4 % (19.3-53.1); MEAN PLATELET VOLUME 8.30 fl (9.4-12.4); MONO # 1.21 (0.24-0.82); MONO % 10.2 % (4.7-12.5); NEUT # 7.60 (1.56-6.13); NEUT % 64.0 % (34.0-71.1); RED CELL DISTRIBUTION WIDTH 16.4 % (11.6-14.4)
[2025-01-02 08:24] LABS: GLUCOSE FASTING 79.0 mg/dL (65-100); OSMOLALITY SERUM 290.0 MOSM/KG (275-295)
[2025-01-02 08:45] LABS: BUN CREA RATIO 47.0 (7.0-25.0); CREATININE SERUM 0.19 mg/dL (0.55-1.02); GFR 375.9
[2025-01-02 10:10] LABS: BAND MAN 2.0 %; EOSINOPHIL MAN 8.0 %; LYMPHOCYTE MAN 14.0 %; MONOCYTE MAN 6.0 %; NEUTROPHILS MAN 70.0 %
[2025-01-02] MEDS ORDERED: MAGNESIUM SULFATE IN WATER 4 GM/100 ML PIGGYBACK IV NR (10:15)
[2025-01-03] VITALS (7 sets, daily range): BP systolic 102–154; BP diastolic 49–89; O2SAT 100
[2025-01-03 06:56] LABS: BASO % 0.6 % (0.1-1.2); EOS # 0.97 (0.04-0.54); EOS % 11.7 % (0.7-7.0); LYMPH # 0.90 (1.18-3.74); LYMPH % 10.8 % (19.3-53.1); MEAN PLATELET VOLUME 8.20 fl (9.4-12.4); MONO # 0.88 (0.24-0.82); MONO % 10.6 % (4.7-12.5); NEUT # 4.92 (1.56-6.13); NEUT % 59.1 % (34.0-71.1); RED CELL DISTRIBUTION WIDTH 16.3 % (11.6-14.4)
[2025-01-03 07:24] LABS: BAND MAN 3.0 %; EOSINOPHIL MAN 9.0 %; LYMPHOCYTE MAN 14.0 %; METAMYELOCYTE 1.0 %; MONOCYTE MAN 18.0 %; NEUTROPHILS MAN 55.0 %
[2025-01-03 07:36] LABS: GLUCOSE FASTING 81.0 mg/dL (65-100); OSMOLALITY SERUM 290.0 MOSM/KG (275-295)
[2025-01-03 07:54] LABS: BUN CREA RATIO 25.0 (7.0-25.0); CREATININE SERUM 0.16 mg/dL (0.55-1.02); GFR 458.33
[2025-01-03] MEDS ORDERED: MAGNESIUM SULFATE/D5W 1GM/100ML PIGGYBAG IV NR (08:25)
[2025-01-03] MEDS ORDERED: POTASSIUM CHLORIDE IN WATER 40 MEQ/100 ML PIGGYBAG IV SCH (09:00)
[2025-01-04 01:14] VITALS: O2SAT 100
[2025-01-04 02:33] VITALS: BP 128/69; O2SAT 100
[2025-01-04 05:23] VITALS: O2SAT 100
[2025-01-04 08:39] VITALS: BP 113/69; O2SAT 98
[2025-01-04] MEDS ORDERED: ENOXAPARIN SODIUM 40 MG/0.4 ML SYRINGE SUBCUTANEO SCH (09:00)
[2025-01-04 09:23] VITALS: O2SAT 100
[2025-01-04 19:33] VITALS: BP 156/98
[2025-01-05 02:24] VITALS: BP 87/48; O2SAT 93
[2025-01-05 08:26] VITALS: BP 106/65
[2025-01-05 13:10] LABS: GLUCOSE FASTING 88.0 mg/dL (65-100); OSMOLALITY SERUM 281.0 MOSM/KG (275-295)
[2025-01-05 13:12] LABS: BUN CREA RATIO 32.0 (7.0-25.0); GFR 273.85
[2025-01-05 13:13] LABS: CREATININE SERUM 0.25 mg/dL (0.55-1.02)
[2025-01-05 17:52] VITALS: BP 140/74; O2SAT 100
[2025-01-06 02:55] VITALS: BP 117/70; O2SAT 97
[2025-01-06 08:46] VITALS: BP 90/52
[2025-01-06 16:46] VITALS: BP 102/58; O2SAT 99
[2025-01-06 23:34] LABS: BASO % 0.3 % (0.1-1.2); EOS # 0.37 (0.04-0.54); EOS % 1.2 % (0.7-7.0); LYMPH # 1.63 (1.18-3.74); LYMPH % 5.1 % (19.3-53.1); MEAN PLATELET VOLUME 8.80 fl (9.4-12.4); MONO # 1.28 (0.24-0.82); MONO % 4.0 % (4.7-12.5); NEUT # 27.71 (1.56-6.13); NEUT % 87.5 % (34.0-71.1); RED CELL DISTRIBUTION WIDTH 16.2 % (11.6-14.4)
[2025-01-07 01:30] VITALS: BP 101/61; O2SAT 97
[2025-01-07 09:08] VITALS: BP 90/56
[2025-01-07] MEDS ORDERED: VANCOMYCIN HCL 125 MG/7.5 ML BLIST.PACK PO STA (09:44)
[2025-01-07] MEDS ORDERED: VANCOMYCIN HCL 125 MG CAPSULE PO SCH (13:00)
[2025-01-07] MEDS ORDERED: SODIUM CL 0.9% 100 ML IV.SOLN IV ONE (15:58)
[2025-01-07 16:00] VITALS: BP 118/74
[2025-01-07] MEDS ORDERED: INDOMETHACIN 25 MG CAPSULE PO SCH (17:00)
[2025-01-08 01:01] VITALS: BP 98/60; O2SAT 99
[2025-01-08 08:51] LABS: BASO % 0.4 % (0.1-1.2); EOS # 0.46 (0.04-0.54); EOS % 4.1 % (0.7-7.0); LYMPH # 1.38 (1.18-3.74); LYMPH % 12.2 % (19.3-53.1); MEAN PLATELET VOLUME 8.90 fl (9.4-12.4); MONO # 0.67 (0.24-0.82); MONO % 5.9 % (4.7-12.5); NEUT # 8.50 (1.56-6.13); NEUT % 75.3 % (34.0-71.1); RED CELL DISTRIBUTION WIDTH 16.6 % (11.6-14.4)
[2025-01-08 10:05] VITALS: BP 104/62; O2SAT 97
[2025-01-08 18:13] VITALS: BP 140/76; O2SAT 100
[2025-01-09 01:42] VITALS: BP 140/72; O2SAT 100
[2025-01-09 08:29] LABS: ALT/SGPT 11.0 U/L (12-78); AST/SGOT 13.0 U/L (15-37); BILIRUBIN TOTAL 0.22 mg/dL (0.3-1.2); BUN CREA RATIO 47.0 (7.0-25.0); GFR 375.9; GLOBULINA 3.1 G/DL (2.4-3.5); GLUCOSE FASTING 77.0 mg/dL (65-100); OSMOLALITY SERUM 286.0 MOSM/KG (275-295)
[2025-01-09 08:37] LABS: CREATININE SERUM 0.19 mg/dL (0.55-1.02)
[2025-01-09 10:19] VITALS: BP 129/83; O2SAT 98
[2025-01-09 12:57] VITALS: O2SAT 100
[2025-01-09 17:22] VITALS: O2SAT 100
[2025-01-09 17:49] VITALS: BP 123/76; O2SAT 97
[2025-01-10] VITALS (7 sets, daily range): BP systolic 113–133; BP diastolic 66–71; O2SAT 96–100
[2025-01-10] MEDS ORDERED: POTASSIUM CHLORIDE IN WATER 100 ML IV STA (16:34)
[2025-01-11 03:21] VITALS: BP 104/58; O2SAT 95
[2025-01-11 06:14] LABS: BASO % 0.7 % (0.1-1.2); EOS # 0.64 (0.04-0.54); EOS % 7.6 % (0.7-7.0); LYMPH # 1.15 (1.18-3.74); LYMPH % 13.6 % (19.3-53.1); MEAN PLATELET VOLUME 9.20 fl (9.4-12.4); MONO # 0.87 (0.24-0.82); MONO % 10.3 % (4.7-12.5); NEUT # 5.58 (1.56-6.13); NEUT % 66.3 % (34.0-71.1); RED CELL DISTRIBUTION WIDTH 16.6 % (11.6-14.4)
[2025-01-11 06:43] LABS: ERYTHROCYTE SEDIMENTATION RATE 32 mm/hr (0-30)
[2025-01-11 09:00] VITALS: BP 159/75; O2SAT 100
[2025-01-11 17:27] VITALS: BP 111/62
[2025-01-12 00:50] VITALS: O2SAT 100
[2025-01-12 03:28] VITALS: O2SAT 99
[2025-01-12 03:36] VITALS: BP 95/60; O2SAT 98
[2025-01-12 08:54] VITALS: O2SAT 98
[2025-01-12 10:06] VITALS: BP 101/60; O2SAT 98
[2025-01-12 11:58] LABS: BUN CREA RATIO 61.0 (7.0-25.0); GFR 240.29; GLUCOSE FASTING 113.0 mg/dL (65-100); OSMOLALITY SERUM 287.0 MOSM/KG (275-295)
[2025-01-12 12:05] LABS: CREATININE SERUM 0.28 mg/dL (0.55-1.02)
[2025-01-12 16:13] VITALS: BP 95/60; O2SAT 99
[2025-01-13] VITALS (7 sets, daily range): BP systolic 80–138; BP diastolic 40–76; O2SAT 95–100
[2025-01-13] MEDS ORDERED: INDOMETHACIN 25 MG CAPSULE PO SCH (09:00)
[2025-01-14 00:43] VITALS: BP 90/50; O2SAT 97
[2025-01-14 08:15] VITALS: BP 112/70
[2025-01-14] MEDS ORDERED: MEROPENEM 500 MG/VIAL VIAL IV SCH (12:09)
[2025-01-14 13:02] VITALS: O2SAT 100
[2025-01-14 18:08] VITALS: O2SAT 100
[2025-01-14 18:38] VITALS: BP 115/60; O2SAT 100
[2025-01-15] VITALS (7 sets, daily range): BP systolic 88–133; BP diastolic 51–70; O2SAT 97–100
[2025-01-15 07:34] LABS: BASO % 0.7 % (0.1-1.2); EOS # 0.68 (0.04-0.54); EOS % 11.3 % (0.7-7.0); LYMPH # 1.24 (1.18-3.74); LYMPH % 20.5 % (19.3-53.1); MEAN PLATELET VOLUME 9.70 fl (9.4-12.4); MONO # 0.87 (0.24-0.82); NEUT # 3.12 (1.56-6.13); NEUT % 51.6 % (34.0-71.1); RED CELL DISTRIBUTION WIDTH 17.2 % (11.6-14.4)
[2025-01-15 07:35] LABS: MONO % 14.4 % (4.7-12.5)
[2025-01-15 07:44] LABS: ERYTHROCYTE SEDIMENTATION RATE 49 mm/hr (0-30)
[2025-01-15 08:11] LABS: ALT/SGPT 16.0 U/L (12-78); AST/SGOT 16.0 U/L (15-37); BILIRUBIN TOTAL 0.19 mg/dL (0.3-1.2); GLOBULINA 3.2 G/DL (2.4-3.5); GLUCOSE FASTING 80.0 mg/dL (65-100); OSMOLALITY SERUM 290.0 MOSM/KG (275-295)
[2025-01-15 08:29] LABS: BUN CREA RATIO 136.0 (7.0-25.0); GFR 317.39
[2025-01-15 08:30] LABS: CREATININE SERUM 0.22 mg/dL (0.55-1.02)
[2025-01-15] MEDS ORDERED: VANCOMYCIN HCL 125 MG CAPSULE PO SCH (12:00)
[2025-01-15] MEDS ORDERED: SOD FERRIC GLUC COMPLX/SUCROSE 125 MG in 0.9 % SODIUM CHLORIDE 100 ML IV SCH (12:00)
[2025-01-16] VITALS (10 sets, daily range): BP systolic 101–134; BP diastolic 60–71; O2SAT 90–100
[2025-01-17] VITALS (9 sets, daily range): BP systolic 86–131; BP diastolic 54–70; O2SAT 90–100
[2025-01-17 06:07] LABS: BASO % 0.4 % (0.1-1.2); EOS # 0.76 (0.04-0.54); EOS % 9.8 % (0.7-7.0); LYMPH # 0.94 (1.18-3.74); LYMPH % 12.1 % (19.3-53.1); MEAN PLATELET VOLUME 9.30 fl (9.4-12.4); MONO # 0.69 (0.24-0.82); MONO % 8.9 % (4.7-12.5); NEUT # 5.26 (1.56-6.13); NEUT % 68.0 % (34.0-71.1); RED CELL DISTRIBUTION WIDTH 17.4 % (11.6-14.4)
[2025-01-17 06:59] LABS: BUN CREA RATIO 84.0 (7.0-25.0); GFR 273.85; GLUCOSE FASTING 86.0 mg/dL (65-100); OSMOLALITY SERUM 287.0 MOSM/KG (275-295)
[2025-01-17 07:00] LABS: CREATININE SERUM 0.25 mg/dL (0.55-1.02)
[2025-01-18] VITALS (8 sets, daily range): BP systolic 78–143; BP diastolic 42–86; O2SAT 90–100
[2025-01-19] VITALS (8 sets, daily range): BP systolic 82–114; BP diastolic 38–63; O2SAT 96–100
[2025-01-19] MEDS ORDERED: VANCOMYCIN HCL 125 MG CAPSULE PO SCH (09:00)
[2025-01-20] VITALS (9 sets, daily range): BP systolic 89–108; BP diastolic 57–66; O2SAT 96–100
[2025-01-20 19:58] LABS: BASO % 0.4 % (0.1-1.2); EOS # 0.60 (0.04-0.54); EOS % 5.9 % (0.7-7.0); ERYTHROCYTE SEDIMENTATION RATE 47 mm/hr (0-30); LYMPH # 1.17 (1.18-3.74); LYMPH % 11.4 % (19.3-53.1); MEAN PLATELET VOLUME 9.40 fl (9.4-12.4); MONO # 0.80 (0.24-0.82); MONO % 7.8 % (4.7-12.5); NEUT # 7.56 (1.56-6.13); NEUT % 73.9 % (34.0-71.1); RED CELL DISTRIBUTION WIDTH 17.8 % (11.6-14.4)
[2025-01-20 20:18] LABS: BUN CREA RATIO 69.0 (7.0-25.0); CREATININE SERUM 0.36 mg/dL (0.55-1.02); GFR 179.79; GLUCOSE FASTING 109.0 mg/dL (65-100); OSMOLALITY SERUM 286.0 MOSM/KG (275-295)
[2025-01-21] VITALS (7 sets, daily range): BP systolic 106–134; BP diastolic 60–73; O2SAT 90–100
[2025-01-21 08:21] LABS: BASO % 0.3 % (0.1-1.2); EOS # 0.56 (0.04-0.54); EOS % 8.3 % (0.7-7.0); LYMPH # 1.00 (1.18-3.74); LYMPH % 14.8 % (19.3-53.1); MEAN PLATELET VOLUME 9.20 fl (9.4-12.4); MONO # 0.72 (0.24-0.82); MONO % 10.7 % (4.7-12.5); NEUT # 4.41 (1.56-6.13); NEUT % 65.5 % (34.0-71.1); RED CELL DISTRIBUTION WIDTH 17.7 % (11.6-14.4)
[2025-01-21 08:37] LABS: ERYTHROCYTE SEDIMENTATION RATE 44 mm/hr (0-30)
[2025-01-21 09:03] LABS: BUN CREA RATIO 106.0 (7.0-25.0); GFR 427.37; GLUCOSE FASTING 82.0 mg/dL (65-100); OSMOLALITY SERUM 288.0 MOSM/KG (275-295)
[2025-01-21 09:10] LABS: CREATININE SERUM 0.17 mg/dL (0.55-1.02)
[2025-01-22] VITALS (8 sets, daily range): BP systolic 139–154; BP diastolic 78–86; O2SAT 86–100
[2025-01-23] VITALS (9 sets, daily range): BP systolic 67–162; BP diastolic 40–82; O2SAT 85–99
[2025-01-23 04:39] LABS: BASO % 0.3 % (0.1-1.2); EOS # 0.68 (0.04-0.54); EOS % 7.7 % (0.7-7.0); LYMPH # 1.01 (1.18-3.74); LYMPH % 11.4 % (19.3-53.1); MEAN PLATELET VOLUME 9.00 fl (9.4-12.4); MONO # 1.06 (0.24-0.82); MONO % 12.0 % (4.7-12.5); NEUT # 5.98 (1.56-6.13); NEUT % 67.6 % (34.0-71.1); RED CELL DISTRIBUTION WIDTH 19.5 % (11.6-14.4)
[2025-01-23] MEDS ORDERED: FOLIC ACID 1 MG TABLET PO NR (11:00)
[2025-01-23] MEDS ORDERED: Cyanocobalamin/Mecobalamin 1 TAB.SL SL NR (11:00)
[2025-01-24] VITALS (8 sets, daily range): BP systolic 113–149; BP diastolic 73–83; O2SAT 97–100
[2025-01-24] MEDS ORDERED: FOLIC ACID 1 MG TABLET PO SCH (09:00)
[2025-01-24] MEDS ORDERED: Cyanocobalamin/Mecobalamin 1 TAB.SL SL SCH (09:00)
[2025-01-24 15:11] LABS: URINE APPEARANCE Clear; URINE BILIRRUBIN Negative (NEGATIVE); URINE BLOOD Large; URINE COLOR Yellow; URINE GLUCOSE Negative (NEGATIVE); URINE KETONE Negative (NEGATIVE); URINE LEUKOCYTE Moderate; URINE NITRATE Negative; URINE UROBILINOGEN 0.2 E.U./dl
[2025-01-24 15:12] LABS: URINE BACTERIA 75.5 uL (0.0-1933); URINE RBC 1663.8 uL (0.0-20.8); URINE WBC 69.3 uL (0.0-23.2)
[2025-01-24 15:43] LABS: URINE CAST 0.29 uL (0.0-1.40); URINE EPITHELIAL CELLS 1.3 uL (0.0-38.8); URINE PROTEIN 100 (NEGATIVE); URINE YEAST FEW /hpf
[2025-01-25] VITALS (9 sets, daily range): BP systolic 95–174; BP diastolic 60–72; O2SAT 89–98
[2025-01-25] MEDS ORDERED: FLUCONAZOLE IN NACL,ISO-OSM 200 MG/100 ML PIGGYBAG IV STA (13:45)
[2025-01-26 01:53] VITALS: BP 77/40
[2025-01-26 04:00] VITALS: BP 89/52
[2025-01-26 05:00] VITALS: O2SAT 94
[2025-01-26 08:31] VITALS: BP 105/70; O2SAT 99
[2025-01-26] MEDS ORDERED: FLUCONAZOLE IN NACL,ISO-OSM 200 MG/100 ML PIGGYBAG IV SCH (09:00)
[2025-01-26 17:43] VITALS: BP 175/88
[2025-01-26 18:46] LABS: BASO % 0.3 % (0.1-1.2); EOS # 0.65 (0.04-0.54); EOS % 6.0 % (0.7-7.0); LYMPH # 0.99 (1.18-3.74); LYMPH % 9.1 % (19.3-53.1); MEAN PLATELET VOLUME 8.90 fl (9.4-12.4); MONO # 0.81 (0.24-0.82); MONO % 7.5 % (4.7-12.5); NEUT # 8.26 (1.56-6.13); NEUT % 76.4 % (34.0-71.1); RED CELL DISTRIBUTION WIDTH 18.3 % (11.6-14.4)
[2025-01-26 19:04] LABS: BUN CREA RATIO 78.0 (7.0-25.0); CREATININE SERUM 0.46 mg/dL (0.55-1.02); GFR 135.49; GLUCOSE FASTING 121.0 mg/dL (65-100); OSMOLALITY SERUM 291.0 MOSM/KG (275-295)
[2025-01-27 03:03] VITALS: BP 136/72; O2SAT 99
[2025-01-27 09:43] VITALS: BP 150/75; O2SAT 99
[2025-01-27 16:50] VITALS: O2SAT 99
[2025-01-27 17:52] VITALS: BP 180/80
== END 2025-01-27 19:46 | disposition home or self-care (01) | DRG 853 ==
LOC: ER 23:46 → ICU 12-30 20:21 → ICU-2 12-30 20:21 → MEDJ 12-30 20:21 → ICU-2 12-30 22:46 → ICU 12-31 04:33 → MEDJ 01-03 20:51
PROVIDERS: General Practice; Internal Medicine; Student in an Organized Health Care Education/Training Program; ADMIT Specialist; ATTEND Specialist
PROC: 0JB70ZZ Excision of Back Subcutaneous Tissue and Fascia, Open Approach (ICD-10-PCS; principal; 2024-12-31)
PROC: B246ZZZ Ultrasonography of Right and Left Heart (ICD-10-PCS; 2024-12-31)
PROC: 4A12X4Z Monitoring of Cardiac Electrical Activity, External Approach (ICD-10-PCS; 2025-01-03)
PROC: 02HV33Z Insertion of Infusion Device into Superior Vena Cava, Percutaneous Approach (ICD-10-PCS; 2025-01-03)
PROC: B548ZZA Ultrasonography of Superior Vena Cava, Guidance (ICD-10-PCS; 2025-01-03)
PROC: 0JB70ZZ Excision of Back Subcutaneous Tissue and Fascia, Open Approach (ICD-10-PCS; 2025-01-05)
PROC: 8E0ZXY6 Isolation (ICD-10-PCS; 2025-01-07)
PROC: 0JB70ZZ Excision of Back Subcutaneous Tissue and Fascia, Open Approach (ICD-10-PCS; 2025-01-13)
PROC: 0JB70ZZ Excision of Back Subcutaneous Tissue and Fascia, Open Approach (ICD-10-PCS; 2025-01-19)
PROC: 30233N1 Transfusion of Nonautologous Red Blood Cells into Peripheral Vein, Percutaneous Approach (ICD-10-PCS; 2025-01-21)
PROC: 0JB70ZZ Excision of Back Subcutaneous Tissue and Fascia, Open Approach (ICD-10-PCS; 2025-01-26)
DX: A41.89 Other specified sepsis (principal); L89.154 Pressure ulcer of sacral region, stage 4; R65.21 Severe sepsis with septic shock; M86.68 Other chronic osteomyelitis, other site; A04.72 Enterocolitis due to Clostridium difficile, not specified as recurrent; B37.49 Other urogenital candidiasis; C78.6 Secondary malignant neoplasm of retroperitoneum and peritoneum; R64 Cachexia; C79.82 Secondary malignant neoplasm of genital organs; E11.622 Type 2 diabetes mellitus with other skin ulcer; I95.9 Hypotension, unspecified; C54.1 Malignant neoplasm of endometrium; D64.89 Other specified anemias; D75.9 Disease of blood and blood-forming organs, unspecified; I10 Essential (primary) hypertension; Z74.01 Bed confinement status; Z92.21 Personal history of antineoplastic chemotherapy; Z66 Do not resuscitate; B96.5 Pseudomonas (aeruginosa) (mallei) (pseudomallei) as the cause of diseases classified elsewhere; B95.2 Enterococcus as the cause of diseases classified elsewhere; B96.89 Other specified bacterial agents as the cause of diseases classified elsewhere